=== PATIENT | male | born 1970 | race Caucasian/White ===

== ENCOUNTER 2023-01-18 20:36 | Emergency (ER) | payer OTHER ==
[~2023-01-18] VITALS: Ht 180.3 cm; Wt 91.0 kg
[2023-01-18] VITALS (12 sets, daily range): BP systolic 117–163; BP diastolic 78–93
[~2023-01-18 20:36] MED LIST: AMLODIPINE BESY10 MG PO; LITHIUM CARB150 MG PO; LORTAB 1010 MG PO; TIZANIDINE4 MG PO; VISTARIL PO; [UNRECOGNIZED DRUG - OTHER]
[2023-01-18 22:34] LABS: BASO% 0.1 % (0-3); EOS% 0.2 % (0-8); HEMATOCRIT 49.2 % (39.0-50.0); IMMATURE GRANULOCYTES 0.3 % (0.0-5.0); LYMPH% 4.1 % (15-41); MEAN CELL VOLUME 97.4 fL CALC (80.0-100.0); MEAN CORPUSCULAR HGB 33.7 pG CALC (26.0-32.0); MEAN CORPUSCULAR HGB CONC 34.6 g/dL CAL (32.0-36.0); MONO% 5.1 % (2-13); NEUT# 20.88 thou/uL (1.82-7.42); NEUT% 90.2 % (42-76); RED BLOOD COUNT 5.05 mill/uL (4.70-6.10); RED CELL DISTRI WIDTH 12.3 % (11.5-15.5)
[2023-01-18 22:51] LABS: ALBUMIN 4.8 g/dL (3.2-5.0); ALKALINE PHOSPHATASE 99 u/l (38-126); ANION GAP 16 (6-22 (CALC)); BILIRUBIN, TOTAL 0.7 mg/dL (0.2-1.3); BUN 7 mg/dL (9-20); BUN/CREATININE RATIO 7 (12-20 (CALC)); CARBON DIOXIDE 27 mmol/l (22-30); CHLORIDE 94 mmol/l (95-108); CREATININE 0.9 mg/dL (0.7-1.3); GFR FOR AFR.AMER. > 60 ML/MIN (>=60 (CALC)); GFR OTHER RACES > 60 ML/MIN (>=60 (CALC)); POTASSIUM 3.7 mmol/l (3.5-5.1); SGOT/AST 34 u/l (17-59); SODIUM 134 mmol/l (137-146); TOTAL PROTEIN 8.1 g/dL (6.3-8.2)
[2023-01-19] VITALS: BP 148/95
[2023-01-19] MEDS ORDERED: ZITHROMAX250 MG PO (00:30)
[2023-01-19] MEDS ORDERED: PREDNISONE20 MG PO (00:30)
[2023-01-19 01:13] VITALS: BP 148/95
== END 2023-01-19 00:35 | disposition left against medical advice (07) ==
LOC: ED 20:36
PROVIDERS: Family Medicine
DX: J03.90 Acute tonsillitis, unspecified (principal); F31.9 Bipolar disorder, unspecified; Z20.822 Contact with and (suspected) exposure to COVID-19; Z53.29 Procedure and treatment not carried out because of patient's decision for other reasons
CPT/HCPCS: Q9967